=== PATIENT | male | born 1980 | race Two or more races ===

== ENCOUNTER 2024-06-02 21:50 | Emergency (ER) | payer MEDICAID ==
[2024-06-02 23:00] LABS: BASOPHILS ABSOLUTE AUTO 0.04 K/uL (0.00-0.20); BASOPHILS PERCENT AUTO 0.3 % (0.0-1.0); EOSINOPHILS ABSOLUTE AUTO 0.07 K/uL (0.00-0.45); EOSINOPHILS PERCENT AUTO 0.6 % (0.0-6.0); HEMATOCRIT 46.1 % (42.0-52.0); IMMATURE GRAN ABSOLUTE AUTO 0.03 K/uL (0.00-0.05); IMMATURE GRAN PERCENT AUTO 0.2 % (0.0-0.4); LYMPHOCYTES PERCENT AUTO 8.1 % (24.0-44.0); MEAN CORPUSCULAR HEMOGLOBIN 29.5 pg (28.0-32.0); MEAN CORPUSCULAR HGB CONC 34.7 g/dL (32.0-36.0); MEAN CORPUSCULAR VOLUME 84.9 fL (83.0-99.0); MEAN PLATELET VOLUME 9.5 fL (9.4-12.4); MONOCYTES ABSOLUTE AUTO 0.64 K/uL (0.00-0.80); MONOCYTES PERCENT AUTO 5.2 % (0.0-8.0); NEUTROPHILS ABSOLUTE AUTO 10.53 K/uL (1.80-7.70); NEUTROPHILS PERCENT AUTO 85.6 % (41.0-71.0); PLATELET COUNT,PLT 251 K/uL (150-400); RED BLOOD CELL COUNT 5.43 M/uL (4.52-5.90); WHITE BLOOD CELL COUNT,WBC 12.31 K/uL (3.9-11.3)
[2024-06-02] MEDS: NIFEdipine 10 MG Cap PO ONE (23:09)
[2024-06-02 23:15] LABS: CALCIUM 8.9 mg/dL (8.5-10.1); CARBON DIOXIDE,CO2 27.2 mmol/L (21.0-32.0); CREATININE 1.1 mg/dL (0.8-1.3); EST CRCL DRUG DOSING (CG) 99.64 mL/min; POTASSIUM,K 3.9 mmol/L (3.5-5.1)
[2024-06-03 00:27] LABS: APPEARANCE,URINE CLEAR; BILIRUBIN,URINE NEGATIVE (NEGATIVE); COLOR,URINE YELLOW; GLUCOSE,URINE NEGATIVE (NEGATIVE); KETONES,URINE NEGATIVE (NEGATIVE); LEUKOCYTE ESTERASE,URINE NEGATIVE (NEGATIVE); NITRITE,URINE NEGATIVE (NEGATIVE); OCCULT BLOOD,URINE NEGATIVE (NEGATIVE); PROTEIN,URINE TRACE mg/dL (NEGATIVE); UROBILINOGEN,URINE 0.2 EU/dL (<2.0)
[2024-06-03 00:42] LABS: BACTERIA,URINE FEW (NEGATIVE); EPITHELIAL CELLS,URINE RARE (NONE-FEW); HYALINE CASTS,URINE 0-1 (0-2/LPF); RBC,URINE 0-3 (0-2/HPF); WBC,URINE 0-1 (0-5/HPF)
[2024-06-03 00:43] LABS: FINE GRANULAR CASTS,URINE 0-1 (NEGATIVE); MUCUS,URINE MODERATE (NONE-MOD)
== END 2024-06-03 01:11 ==
LOC: MW.ED 21:50
DX: I10 Essential (primary) hypertension (principal); F17.210 Nicotine dependence, cigarettes, uncomplicated
CPT/HCPCS: 36415; 80048; 81001; 85025; 99284; A9270; 99283

== ENCOUNTER 2024-06-04 09:26 | Emergency (ER) | payer MEDICAID ==
[2024-06-04] MEDS: Lisinopril 10 MG Tab PO ONE (10:59)
== END 2024-06-04 11:29 | disposition home or self-care (01) ==
LOC: MW.ED 09:26
DX: Z02.89 Encounter for other administrative examinations (principal); I10 Essential (primary) hypertension
CPT/HCPCS: 99283; A9270

== ENCOUNTER 2024-06-24 20:47 | Emergency (ER) | payer MEDICAID ==
[2024-06-24] MEDS: hydrALAZINE 20 MG/ML SDV IVPUSH ONE ×2 (22:23→23:25)
[2024-06-25] MEDS: Labetalol 100 MG/20 ML MDV IVPUSH ONE ×2 (00:12→00:35)
[2024-06-25] MEDS: Acetaminophen 500 MG Tab PO ONE (00:36)
== END 2024-06-25 00:50 ==
LOC: MW.ED 20:47
DX: Z53.21 Procedure and treatment not carried out due to patient leaving prior to being seen by health care provider (principal)
CPT/HCPCS: A9270; J0360; J1920

== ENCOUNTER 2024-06-26 19:38 | Emergency (ER) | payer OTHER, MEDICAID ==
[2024-06-26 20:03] LABS: BASOPHILS PERCENT AUTO 0.8 % (0.0-1.0); EOSINOPHILS PERCENT AUTO 2.5 % (0.0-6.0); HEMATOCRIT 50.4 % (42.0-52.0); HEMOGLOBIN 17.7 g/dL (14.0-18.0); IMMATURE GRAN PERCENT AUTO 0.3 % (0.0-0.4); LYMPHOCYTES ABSOLUTE AUTO 2.25 K/uL (1.00-4.80); LYMPHOCYTES PERCENT AUTO 29.5 % (24.0-44.0); MEAN CORPUSCULAR HEMOGLOBIN 29.7 pg (28.0-32.0); MEAN CORPUSCULAR HGB CONC 35.1 g/dL (32.0-36.0); MEAN CORPUSCULAR VOLUME 84.6 fL (83.0-99.0); MEAN PLATELET VOLUME 9.3 fL (9.4-12.4); MONOCYTES PERCENT AUTO 7.9 % (0.0-8.0); NEUTROPHILS ABSOLUTE AUTO 4.52 K/uL (1.80-7.70); PLATELET COUNT,PLT 303 K/uL (150-400); RED BLOOD CELL COUNT 5.96 M/uL (4.52-5.90); WHITE BLOOD CELL COUNT,WBC 7.64 K/uL (3.9-11.3)
[2024-06-26 20:04] LABS: BASOPHILS ABSOLUTE AUTO 0.06 K/uL (0.00-0.20); EOSINOPHILS ABSOLUTE AUTO 0.19 K/uL (0.00-0.45); IMMATURE GRAN ABSOLUTE AUTO 0.02 K/uL (0.00-0.05)
[2024-06-26 20:37] LABS: ALANINE AMINOTRANSFERASE,ALT 26 IU/L (14-63); ALKALINE PHOSPHATASE 107 U/L (46-116); ASPARTATE AMNIOTRANSFERASE,AST 19 IU/L (15-37); BILIRUBIN TOTAL 0.5 mg/dL (0.2-1.0); BLOOD UREA NITROGEN,BUN 16 mg/dL (7.0-18.0); CALCIUM 9.3 mg/dL (8.5-10.1); CARBON DIOXIDE,CO2 30.1 mmol/L (21.0-32.0); CHLORIDE,CL 102 mmol/L (98-107); CREATININE 1.2 mg/dL (0.8-1.3); GLUCOSE RANDOM 141 mg/dL (74-106); PROTEIN TOTAL,TP 7.9 g/dL (6.4-8.2); SODIUM,NA 137 mmol/L (136-148)
[2024-06-26 20:38] LABS: ESTIMATED GFR 76 mL/min (>60)
[2024-06-26] MEDS ORDERED: cloNIDine 0.1 MG Tab PO ONE (21:35)
[2024-06-26] MEDS: Hydrochlorothiazide 25 MG Tab PO ONE (21:42)
[2024-06-26] MEDS: cloNIDine 0.1 MG Tab PO ONE (23:16)
== END 2024-06-26 23:17 ==
LOC: MW.ED 19:38
DX: Z02.89 Encounter for other administrative examinations (principal); I10 Essential (primary) hypertension; F17.210 Nicotine dependence, cigarettes, uncomplicated; Z75.8 Other problems related to medical facilities and other health care
CPT/HCPCS: 36415; 80053; 85025; 99283; A9270

== ENCOUNTER 2024-08-03 09:26 | Emergency (ER) | payer MEDICAID ==
[~2024-08-03 09:26] MED LIST: EPINEPHrine 1:10,000 1 MG/10 ML Syringe IV PRN
[2024-08-03] MEDS: EPINEPHrine 1:10,000 1 MG/10 ML Syringe IV PRN (09:28)
[2024-08-03] MEDS ORDERED: EPINEPHrine 1 MG/1 ML Amp IVPUSH ONE ×8 (09:28→09:52)
[2024-08-03] MEDS: Naloxone 0.4 MG/ML SDV IVPUSH ONE ×2 (09:29→09:42)
[2024-08-03] MEDS: Sodium Bicarbonate 8.4% 50 MEQ/50 ML Syringe IVPUSH ONE ×2 (09:30→09:37)
[2024-08-03] MEDS: Calcium Chloride 10% 1 GM/10 ML Syringe IVPUSH ONE (09:31)
[2024-08-03] MEDS: Sodium Chloride 0.9% 1,000 ML IV STA (09:33)
[2024-08-03] MEDS: Amiodarone 150 MG/3 ML SDV IV ONE (09:42)
[2024-08-03 10:02] LABS: BASOPHILS ABSOLUTE AUTO 0.17 K/uL (0.00-0.20); BASOPHILS PERCENT AUTO 1.1 % (0.0-1.0); EOSINOPHILS ABSOLUTE AUTO 0.19 K/uL (0.00-0.45); EOSINOPHILS PERCENT AUTO 1.2 % (0.0-6.0); HEMATOCRIT 55.6 % (42.0-52.0); HEMOGLOBIN 16.7 g/dL (14.0-18.0); IMMATURE GRAN ABSOLUTE AUTO 0.24 K/uL (0.00-0.05); IMMATURE GRAN PERCENT AUTO 1.5 % (0.0-0.4); LYMPHOCYTES ABSOLUTE AUTO 10.52 K/uL (1.00-4.80); LYMPHOCYTES PERCENT AUTO 65.9 % (24.0-44.0); MEAN CORPUSCULAR HEMOGLOBIN 28.9 pg (28.0-32.0); MEAN CORPUSCULAR VOLUME 96.2 fL (83.0-99.0); MEAN PLATELET VOLUME 10.8 fL (9.4-12.4); MONOCYTES ABSOLUTE AUTO 1.08 K/uL (0.00-0.80); MONOCYTES PERCENT AUTO 6.8 % (0.0-8.0); NEUTROPHILS ABSOLUTE AUTO 3.76 K/uL (1.80-7.70); NEUTROPHILS PERCENT AUTO 23.5 % (41.0-71.0); NRBC ABSOLUTE 0.09 K/uL (0.00-0.02); NRBC PERCENT 0.6 /100WBC (0.0-0.2); PLATELET COUNT,PLT 233 K/uL (150-400); RED BLOOD CELL COUNT 5.78 M/uL (4.52-5.90); WHITE BLOOD CELL COUNT,WBC 15.96 K/uL (3.9-11.3)
[2024-08-03 10:07] LABS: AMPHETAMINES SCREEN, URINE PRESUMPTIVE POSITIVE (CUTOFF=500); BARBITURATE SCREEN,URINE NEGATIVE (CUTOFF=200); BENZODIAZEPINES SCREEN,URINE NEGATIVE (CUTOFF=150); BUPRENORPHINE SCREEN,URINE NEGATIVE (CUTOFF=10); METHADONE SCREEN, URINE NEGATIVE (CUTOFF=200); METHAMPHETAMINES SCREEN, URINE PRESUMPTIVE POSITIVE (CUTOFF=500); OXYCODONE SCREEN,URINE NEGATIVE (CUT0FF=100); PCP SCREEN,URINE NEGATIVE (CUTOFF=25); THC SCREEN,URINE 20 NG/ML PRESUMPTIVE POSITIVE (CUTOFF=50)
[2024-08-03 10:07] LABS: BLOOD UREA NITROGEN,BUN 17 mg/dL (7.0-18.0); CALCIUM 11.4 mg/dL (8.5-10.1); CARBON DIOXIDE,CO2 14.8 mmol/L (21.0-32.0); CHLORIDE,CL 103 mmol/L (98-107); CREATININE 1.7 mg/dL (0.8-1.3); GLUCOSE RANDOM 316 mg/dL (74-106); POTASSIUM,K 6.4 mmol/L (3.5-5.1); SODIUM,NA 146 mmol/L (136-148)
[2024-08-03 10:10] LABS: ESTIMATED GFR 50 mL/min (>60); ETHANOL BLOOD MEDICAL < 3.0 mg/dL
[2024-08-03] MEDS: EPINEPHrine 1 MG/1 ML Amp IVPUSH ONE (14:47)
== END 2024-08-03 10:01 | disposition expired ==
LOC: MW.ED 09:26
DX: I46.9 Cardiac arrest, cause unspecified (principal); Z75.8 Other problems related to medical facilities and other health care; I10 Essential (primary) hypertension
CPT/HCPCS: 36415; 51702; 80048; 80305; 80307; 85025; 92950; 96374; 96375; 99285; J0171; J0282; J2310; J7030; J3490